=== PATIENT | female | born 1985 | race Caucasian/White ===

== ENCOUNTER 2018-01-01 03:01 | Observation (INO) | payer SELFPAY ==
[2018-01-01] MEDS ORDERED: NORMAL SALINE 1000 ML 1,000 ML IV ONE ×2 (03:16→06:10)
[2018-01-01] MEDS ORDERED: ONDANSETRON HCL INJ/PF 4 MG/2 ML SDV IV ONE (03:16)
[2018-01-01 03:59] LABS: HEMOGLOBIN 13.7 g/dL (12.0-15.5); MEAN CORPUSCULAR HEMOGLOBIN 27.4 pg (27.0-33.4); MEAN CORPUSCULAR HGB CONC 32.7 g/dL (32.0-36.0); MEAN CORPUSCULAR VOLUME 84 fl (80-97); PLATELET COUNT 398 10^3/uL (150-450); RED BLOOD COUNT 5.01 10^6/uL (3.72-5.28); RED CELL DISTRIBUTION WIDTH 14.2 % (11.5-14.0); WHITE BLOOD COUNT 24.2 10^3/uL (4.0-10.5)
[2018-01-01 04:15] LABS: ALANINE AMINOTRANSFERASE 21 U/L (9-52); ALBUMIN 4.6 g/dL (3.5-5.0); ALKALINE PHOSPHATASE 82 U/L (38-126); ANION GAP 15 (5-19); ASPARTATE AMINO TRANSFERASE 25 U/L (14-36); BILIRUBIN,DIRECT 0.3 mg/dL (0.0-0.4); BILIRUBIN,TOTAL 0.7 mg/dL (0.2-1.3); BLOOD UREA NITROGEN 10 mg/dL (7-20); CALCIUM 9.9 mg/dL (8.4-10.2); CARBON DIOXIDE 22 mmol/L (22-30); CHLORIDE 105 mmol/L (98-107); GLUCOSE 135 mg/dL (75-110); POTASSIUM 4.5 mmol/L (3.6-5.0); TOTAL PROTEIN 7.9 g/dL (6.3-8.2)
[2018-01-01 04:31] LABS: ABSOLUTE LYMPHOCYTES# (MANUAL) 1.5 10^3/uL (0.5-4.7); ABSOLUTE MONOCYTES # (MANUAL) 0.5 10^3/uL (0.1-1.4); ABSOLUTE NEUTROPHILS# (MANUAL) 22.3 10^3/uL (1.7-8.2); BASOPHILS % (MANUAL) 0 % (0-2); EOSINOPHILS % (MANUAL) 0 % (0-6); LYMPHOCYTES % (MANUAL) 6 % (13-45); MONOCYTES % (MANUAL) 2 % (3-13); SEGMENTED NEUTROPHILS % (MAN) 92 % (42-78); TOTAL CELLS COUNTED 100
[2018-01-01 04:32] LABS: PLATELET COMMENT ADEQUATE
[2018-01-01] MEDS ORDERED: HYDROMORPHONE HCL INJ/PF 2 MG/ML AMPULE IV ONE ×3 (04:32→07:10)
[2018-01-01 04:34] LABS: RBC MORPHOLOGY COMMENT NORMO-CYTIC/CHROMIC
--- NOTE | 2018-01-01 04:44 | ER Document Report ---
Doctor's Note Notes: 01/01/18 04:42 I performed a quick triage evaluation the patient. Patient is a 32-year-old female presents complaining with severe abdominal pain. Pain is mostly epigastric. She said she developed a small amount of blood earlier today. No black or tarry stools. Last bowel movement was yesterday around 1 PM there is no blood in it. She says her pain is around 10 PM. Pain is been continued since. Hurts more to lay down flat. Does not take NSAID medications. Says she has a history of which thinks is probably gastric ulcers but she has never actually had endoscopy to look for them. No recent fevers. She has had previous cholecystectomy. She does not drink alcohol. No drug abuse. No smoking. On exam she has pain mostly in the epigastric region and across her upper abdomen. Abdomen is soft and not firm. Some guarding. White blood cell count has come back at 24,000. Have ordered a CT scan with IV contrast. I have ordered pain medicine for her. 01/01/18 04:43 Dictation of this chart was performed using voice recognition software; therefore, there may be some unintended grammatical errors.
[2018-01-01 05:15] LABS: APPEARANCE,URINE SLIGHTLY-CLOUDY; BILIRUBIN,URINE NEGATIVE (NEGATIVE); COLOR,URINE YELLOW; GLUCOSE, URINE NEGATIVE (NEGATIVE); KETONES,URINE TRACE mg/dL (NEGATIVE); LEUKOCYTE ESTERASE,URINE SMALL (NEGATIVE); NITRITE,URINE NEGATIVE (NEGATIVE); PROTEIN,URINE NEGATIVE (NEGATIVE); URINE SPECIFIC GRAVITY 1.019; UROBILINOGEN,URINE NEGATIVE mg/dL (<2.0)
--- NOTE | 2018-01-01 05:41 | RADIOLOGY REPORT (SQ) ---
EXAM DESCRIPTION: XR ABDOMEN SUPINE AND ERECT WITH CHEST (ABD ACUTE SERIES) COMPLETED DATE/TME: 01/01/2018 04:32 CLINICAL HISTORY: 32 years Female, abdominal pain COMPARISON: None. NUMBER OF VIEWS/TECHNIQUE: 3 LIMITATIONS: None. FINDINGS: Intestinal gas pattern is within normal limits. Paucity of bowel gas. No suspicious calcification. Grossly intact skeletal structures. No acute cardiopulmonary findings. Right upper abdominal clips. IMPRESSION: No acute findings.
--- NOTE | 2018-01-01 06:00 | RADIOLOGY REPORT (SQ) ---
PROCEDURE: CT OF THE ABDOMEN AND PELVIS WITH INTRAVENOUS CONTRAST HISTORY: abdominal pain Indication: Same as above Comparison: None . Technique: The study was done on 01/01/2018 at 5:26 AM, local time CT of the abdomen and pelvis was done with intravenous contrast. Images were obtained from the lung base to the level of the pubic symphysis in axial plane, followed by orthogonal sagittal and coronal reconstruction. Oral contrast was not given for the study. The patient was injected with radiographic contrast intravenously, without any documented immediate adverse reactions. This exam was performed according to our departmental dose-optimization program, which includes automated exposure control, adjustment of the mA and/or KV according to the patient's size and/or use of iterative reconstruction technique. FINDINGS: Images through the lung bases do not show any focal infiltrates or pleural effusions. The appendix is enlarged, measuring 9 mm, is fluid-filled and contains few appendicoliths with periappendiceal inflammatory change suggestive of early acute appendicitis. Benign ovarian follicles are seen, not requiring any imaging follow-up. Trace amount of free fluid is seen in the dependent portion of the pelvis. An anteverted uterus is noted The liver, pancreas and the bilateral adrenal glands appear unremarkable. There is prior cholecystectomy. There is a subcentimeter benign cyst/hemangioma in the superior lateral aspect of the spleen The bilateral kidneys enhance with contrast in a normal fashion. A benign cortical cyst is seen in the medial aspect of the midpole of the right kidney The urinary bladder is unremarkable . The bilateral ureters and the bilateral periureteral soft tissues and fat planes are unremarkable. The small bowel appears unremarkable, without any evidence of small bowel obstruction or bowel wall thickening. There is no CT evidence of acute colonic diverticulitis or colitis or large bowel obstruction. The splenic and portal veins are of normal caliber, without any filling defects. There is no pathological lymphadenopathy in the retroperitoneum or in the pelvic region. There is no evidence of free air in the abdomen or the pelvic region. There is no clinically significant abdominal aortic aneurysm. There is no clinically significant inguinal or ventral hernia. The visualized lumbar spine is unremarkable . The paravertebral soft tissues are unremarkable. The remainder of the pelvic structures are unremarkable. The findings were discussed with Ms. Trista Duran RN at 4:58 AM IMPRESSION: The appendix is enlarged, measuring 9 mm, is fluid-filled and contains few appendicoliths with periappendiceal inflammatory change suggestive of early acute appendicitis.. Location of Interpretation: Teleradiology
[2018-01-01] MEDS ORDERED: PIPERACILLIN/TAZOBACTAM 3.375 GM VIAL IV ONE (06:07)
--- NOTE | 2018-01-01 06:14 | ER Document Report ---
ED General - General Chief Complaint: Abdominal Pain Stated Complaint: ABDOMINAL PAIN Time Seen by Provider: 01/01/18 04:34 Information source: Patient - HPI Patient complains to provider of: Lower abdominal pain Onset: This evening - 32-year-old female presented for evaluation of abdominal pain in the lower aspect of the abdomen with some cramping associated fevers chills as well as now anorexia. Has never had anything like this in the past, nothing makes it better or worse, it is intensified and moved from her bellybutton to lower aspect of her abdomen. She does have a history of having her gallbladder removed as well as a tubal ligation in the past. - Related Data Allergies/Adverse Reactions: acetaminophen [From Tylenol-Codeine #3] Allergy (Verified 01/01/18 03:06) codeine [From Tylenol-Codeine #3] Allergy (Verified 01/01/18 03:06) Past Medical History - General Information source: Patient - Social History Smoking Status: Never Smoker Frequency of alcohol use: Social Drug Abuse: None Family History: None Patient has suicidal ideation: No Patient has homicidal ideation: No Renal/ Medical History: Denies: Hx Peritoneal Dialysis Past Surgical History: Reports: Hx Cholecystectomy, Hx Orthopedic Surgery - Right foot, Hx Tubal Ligation Review of Systems - Review of Systems -: Yes All other systems reviewed and negative Physical Exam - Vital signs Vitals: Temp Pulse Resp BP Pulse Ox 97.9 F 93 20 118/80 100 01/01/18 03:11 01/01/18 03:11 01/01/18 03:11 01/01/18 03:11 01/01/18 03:11 - General General appearance: Appears well In distress: None - HEENT Head: Normocephalic Eyes: Normal Conjunctiva: Normal Cornea: Normal Extraocular movements intact: No - Respiratory Respiratory status: No respiratory distress Chest status: Nontender Breath sounds: Normal Chest palpation: Normal - Cardiovascular Rhythm: Regular Heart sounds: Normal auscultation Murmur: No - Abdominal Tenderness: Other - Diffuse tenderness throughout the abdomen worse in the suprapubic aspect as well as the right lower quadrant with some appreciable rebound - Back Back: Normal - Extremities General upper extremity: Normal inspection General lower extremity: Normal inspection - Neurological Neuro grossly intact: Yes Cognition: Normal Orientation: AAOx4 [place] Coma Scale Eye Opening: Spontaneous [place] Coma Scale Verbal: Oriented [place] Coma Scale Motor: Obeys Commands [place] Coma Scale Total: 15 - Psychological Associated symptoms: Normal affect Course - Re-evaluation Re-evalutation: 01/01/18 07:55 This 32-year-old female presented for evaluation of abdominal pain. Prior to my assessment this patient underwent CT imaging as well as labs, she is marked leukocytosis with anorexia her CT does demonstrate what appears to be an acute appendicitis. Contacted on-call general surgeon Dr. Hines. Dr. Hines agrees to evaluate the patient. We will initiate Zosyn for the patient as far as antibiotics. Patient is undergone evaluation through general surgery at this time plan to go to the operating room. We will continue to monitor emergency department to appropriately transported to the operating room. - Vital Signs Vital signs: Temp Pulse Resp BP Pulse Ox 98.5 F 93 20 123/75 100 01/01/18 06:50 01/01/18 03:11 01/01/18 05:00 01/01/18 07:00 01/01/18 07:01 - Laboratory Result Diagrams: 01/01/18 03:42 01/01/18 03:42 Laboratory results interpreted by me: 01/01/18 01/01/18 01/01/18 03:42 03:42 04:57 WBC 24.2 H RDW 14.2 H Seg Neuts % (Manual) 92 H Lymphocytes % (Manual) 6 L Monocytes % (Manual) 2 L Abs Neuts (Manual) 22.3 H Glucose 135 H Urine Ketones TRACE H Ur Leukocyte Esterase SMALL H Urine Ascorbic Acid 20 H Discharge - Discharge Clinical Impression: Acute appendicitis Qualifiers: Acute appendicitis type: with localized peritonitis Qualified Code(s): K35.3 - Acute appendicitis with localized peritonitis Condition: Stable Disposition: ADMITTED INPATIENT Admitting Provider: Surgicalist
[2018-01-01] MEDS ORDERED: HYDROMORPHONE HCL INJ/PF 2 MG/ML AMPULE ONE ×2 (07:09→09:23)
[2018-01-01] MEDS ORDERED: ONDANSETRON HCL INJ/PF 4 MG/2 ML SDV IV PRN ×2 (07:32→10:17)
[2018-01-01] MEDS ORDERED: DEXTROSE 5%-LACTATED RINGERS 1,000 ML IV PRN (07:32)
[2018-01-01] MEDS ORDERED: MORPHINE SULFATE 10 MG/ML INJ IV PRN (07:32)
--- NOTE | 2018-01-01 07:32 | PDOC H&P ---
History of Present Illness Patient complains of: Right lower quadrant abdominal pain History of Present Illness: MAMI BARKER is a 32 year old female with a 12 hour history of periumbilical abdominal pain that has radiated to the right lower quadrant. She reports subjective fevers and chills. Her abdominal pain is sharp and severe, rated 10 out of 10 at its worst. Pain radiates into her pelvis and across her midline to the left lower quadrant. Patient has had associated nausea and vomiting. Movement and palpation make her pain worse. Pain medication makes it better. Patient denies chest pain, shortness of breath, fatigue, malaise, dizziness, orthostasis, blurry vision, melena, hematochezia, hematemesis. Past Surgical History Past Surgical History: Reports: Cholecystectomy, Orthopedic Surgery - Right foot , Tubal Ligation Social History Information Source: Patient Smoking Status: Former Smoker Frequency of Alcohol Use: Occasional Hx Recreational Drug Use: No Hx Prescription Drug Abuse: No Family History Family History: Reviewed & Not Pertinent Parental Family History Reviewed: Yes Children Family History Reviewed: Yes Sibling(s) Family History Reviewed.: Yes Medication/Allergy Home Medications: No Home Medications 01/01/18 Allergies/Adverse Reactions: acetaminophen [From Tylenol-Codeine #3] Allergy (Verified 01/01/18 03:06) codeine [From Tylenol-Codeine #3] Allergy (Verified 01/01/18 03:06) Review of Systems Constitutional: PRESENT: anorexia, chills, fever(s). ABSENT: fatigue, weakness Eyes: ABSENT: visual disturbances Ears: ABSENT: hearing changes Nose, Mouth, and Throat: ABSENT: sore throat Cardiovascular: ABSENT: chest pain, dyspnea on exertion, edema Respiratory: ABSENT: cough, dyspnea Gastrointestinal: PRESENT: abdominal pain, nausea, vomiting. ABSENT: constipation, dysphagia, heartburn, hematemesis, hematochezia, melena Genitourinary: ABSENT: dysuria Musculoskeletal: ABSENT: back pain Integumentary: ABSENT: diaphoresis, pruritus, rash Neurological: ABSENT: abnormal gait, confusion, convulsions, dizziness, memory loss Psychiatric: ABSENT: anxiety, depression, hallucinations Endocrine: ABSENT: cold intolerance, heat intolerance Hematologic/Lymphatic: ABSENT: easy bleeding, easy bruising Physical Exam Vital Signs: Temp Pulse Resp BP Pulse Ox 98.5 F 93 20 123/75 100 01/01/18 06:50 01/01/18 03:11 01/01/18 05:00 01/01/18 07:00 01/01/18 07:01 Intake & Output 12/31/17 01/01/18 01/02/18 06:59 06:59 06:59 Intake Total 1000 1000 Balance 1000 1000 Weight 82.8 kg General appearance: PRESENT: mild distress - Abdominal Head exam: PRESENT: atraumatic, normocephalic Eye exam: PRESENT: EOMI, PERRLA. ABSENT: scleral icterus Mouth exam: PRESENT: moist, neck supple Teeth exam: ABSENT: poor dentation Neck exam: ABSENT: lymphadenopathy, meningismus, tenderness, thyromegaly, tracheal deviation Respiratory exam: PRESENT: clear to auscultation cari, unlabored. ABSENT: chest wall tenderness, tachypnea, wheezes Cardiovascular exam: PRESENT: RRR Pulses: PRESENT: normal radial pulses Vascular exam: PRESENT: normal capillary refill, pallor GI/Abdominal exam: PRESENT: guarding, rebound, tenderness - Right lower quadrant. ABSENT: distended Rectal exam: PRESENT: deferred Extremities exam: ABSENT: clubbing, tenderness Musculoskeletal exam: ABSENT: deformity Neurological exam: PRESENT: alert, awake, oriented to person, oriented to place , oriented to time, oriented to situation, CN II-XII grossly intact. ABSENT: motor sensory deficit Psychiatric exam: ABSENT: agitated, anxious, depressed Focused psych exam: ABSENT: delusional Skin exam: ABSENT: cyanosis, erythema, jaundice Results Laboratory Results: 01/01/18 03:42 01/01/18 03:42 01/01/18 01/01/18 01/01/18 03:42 03:42 03:42 WBC 24.2 H RBC 5.01 Hgb 13.7 Hct 42.0 MCV 84 MCH 27.4 MCHC 32.7 RDW 14.2 H Plt Count 398 Seg Neutrophils % Not Reportable Lymphocytes % Not Reportable Monocytes % Not Reportable Eosinophils % Not Reportable Basophils % Not Reportable Absolute Neutrophils Not Reportable Absolute Lymphocytes Not Reportable Absolute Monocytes Not Reportable Absolute Eosinophils Not Reportable Absolute Basophils Not Reportable Sodium 142.0 Potassium 4.5 Chloride 105 Carbon Dioxide 22 Anion Gap 15 BUN 10 Creatinine 0.78 Est GFR ( Amer) > 60 Est GFR (Non-Af Amer) > 60 Glucose 135 H Calcium 9.9 Total Bilirubin 0.7 AST 25 ALT 21 Alkaline Phosphatase 82 Total Protein 7.9 Albumin 4.6 Lipase 47.9 Serum HCG, Qual Urine Color Urine Appearance Urine pH Ur Specific [place] Urine Protein Urine Glucose (UA) Urine Ketones Urine Blood Urine Nitrite Ur Leukocyte Esterase Urine WBC (Auto) Urine RBC (Auto) 01/01/18 01/01/18 03:42 04:57 WBC RBC Hgb Hct MCV MCH MCHC RDW Plt Count Seg Neutrophils % Lymphocytes % Monocytes % Eosinophils % Basophils % Absolute Neutrophils Absolute Lymphocytes Absolute Monocytes Absolute Eosinophils Absolute Basophils Sodium Potassium Chloride Carbon Dioxide Anion Gap BUN Creatinine Est GFR ( Amer) Est GFR (Non-Af Amer) Glucose Calcium Total Bilirubin AST ALT Alkaline Phosphatase Total Protein Albumin Lipase Serum HCG, Qual NEGATIVE Urine Color YELLOW Urine Appearance SLIGHTLY-CLOUDY Urine pH 7.0 Ur Specific [place] 1.019 Urine Protein NEGATIVE Urine Glucose (UA) NEGATIVE Urine Ketones TRACE H Urine Blood NEGATIVE Urine Nitrite NEGATIVE Ur Leukocyte Esterase SMALL H Urine WBC (Auto) 2 Urine RBC (Auto) 2 Impressions: Acute Abdomen Series 01/01/18 04:32 IMPRESSION: No acute findings. Abdomen/Pelvis CT 01/01/18 04:37 IMPRESSION: The appendix is enlarged, measuring 9 mm, is fluid-filled and contains few appendicoliths with periappendiceal inflammatory change suggestive of early acute appendicitis.. Location of Interpretation: Teleradiology Assessment & Plan - Diagnosis (1) Acute appendicitis Qualifiers: Acute appendicitis type: with localized peritonitis Qualified Code(s): K35.3 - Acute appendicitis with localized peritonitis Is this a current diagnosis for this admission?: Yes - Plan Summary Plan Summary: This is a 32-year-old female with a 12 hour history of periumbilical pain that has moved to her right lower quadrant. The pain has become sharp and severe. The patient has a 24,000 white count and a CT scan suggesting acute appendicitis. I have recommended operative intervention for the patient. Plan for laparoscopic versus open appendectomy. Risks/benefits discussed, informed consent obtained, and all questions answered.
[2018-01-01] MEDS ORDERED: FENTANYL CITRATE INJ/PF 250 MCG/5 ML AMPULE ONE (09:22)
[2018-01-01] MEDS ORDERED: MIDAZOLAM 2 MG/2 ML INJ ONE (09:22)
[2018-01-01] MEDS ORDERED: PROPOFOL INJ 200 MG/20 ML VIAL IV ONE (09:23)
[2018-01-01] MEDS ORDERED: BUPIVACAINE HCL 0.5 % INJ/PF 30 ML SDV ONE (09:43)
[2018-01-01] MEDS ORDERED: FENTANYL CITRATE INJ/PF 100 MCG/2 ML AMPUL IV PRN ×3 (10:09)
[2018-01-01] MEDS ORDERED: PROMETHAZINE HCL INJ 25 MG/1 ML VIAL IV PRN ×2 (10:09)
[2018-01-01] MEDS ORDERED: DIPHENHYDRAMINE HCL 50 MG/ML VIAL IV PRN (10:09)
[2018-01-01] MEDS ORDERED: OXYCODONE-ACETAMINOPHEN 5-325 MG TABLET PO PRN (10:17)
[2018-01-01] MEDS ORDERED: NEOSTIGMINE METHYLSULFATE 10 MG/10 ML VIAL ONE (10:26)
[2018-01-01] MEDS ORDERED: DEXAMETHASONE SOD PHOSPHATE INJ 4 MG/1 ML VIAL ONE (10:26)
[2018-01-01] MEDS ORDERED: GLYCOPYRROLATE 1 MG/5 ML SYRINGE ONE (10:26)
[2018-01-01] MEDS ORDERED: ONDANSETRON HCL INJ/PF 4 MG/2 ML SDV ONE (10:26)
[2018-01-01] MEDS ORDERED: SUCCINYLCHOLINE CHLORIDE INJ 200 MG/10 ML VIAL ONE (10:26)
[2018-01-01] MEDS ORDERED: ROCURONIUM BROMIDE INJ 50 MG/5 ML VIAL IV ONE (10:26)
--- NOTE | 2018-01-01 10:28 | Operative Report ---
Operative Report DATE OF SURGERY: 01/01/18 PREOPERATIVE DIAGNOSIS: Acute appendicitis POSTOPERATIVE DIAGNOSIS: Same without rupture OPERATION: Laparoscopic appendectomy SURGEON: JUDD WHITE ANESTHESIA: GA TISSUE REMOVED OR ALTERED: one appendix COMPLICATIONS: none ESTIMATED BLOOD LOSS: scant INTRAOPERATIVE FINDINGS: see below PROCEDURE: Patient was taken from the holding the operating room and general anesthesia was induced; the patient voided on-call to the operating room. The left arm was tucke, right arm abducted, abdomen previously clipped of hair, then prepped with Betadine. The abdomen was draped, and instrumentation was set up for laparoscopic appendectomy 3 port. Surgical plan and surgical timeout. Markings were made on the skin for supraumbilical, suprapubic, left lower quadrant port placement. Skin was anesthetized at all 3 sites with quarter percent Marcaine. A supraumbilical vertical incision was made with a knife and Veress needle inserted into the peritoneal cavity, pneumoperitoneum was established. Veress needle was removed, 5 mm port was inserted and a 5 mm viewing scope was inserted. Under direct visualization 2 additional ports were placed one suprapubic 5 mm and 112 mm left lower quadrant. Intraoperative findings were significant for no evidence of bowel or vascular injury. There was a minimal amount of purulent fluid in the right deep hemipelvis. The right tube right ovary, uterus, left tube and left ovary were all visualized, felt to be within normal limits, and photographed. The appendix was acutely inflamed, without rupture. It was affixed to the pelvic brim. It was brought up into the free peritoneal space using blunt hook cautery dissection. We now have the appendix suspended solely by its base and the mesoappendix. We now activated the stapler, amputating the appendix and the mesoappendix and a single firing. The specimen was placed in an Endobag and brought out of the patient to the left lower quadrant port site without spillage. The specimen was eventually sent to pathology for permanent analysis We returned the peritoneal cavity checked for bleeding from the staple line and there was none. Minimal amount of local irrigation was deployed around the staple line, and in the right hemipelvis removing the previously described purulent fluid. We did not irrigate the entire peritoneal cavity because that was not indicated. There is no indication for drain. At this point felt the operation was complete. Sponge and needle counts correct. All ports removed under direct visualization, pneumoperitoneum evacuated, wounds closed with 3-0 Vicryl benzoin Steri-Strips. Patient tolerated procedure well, extubated, taken recovery in stable condition.
[2018-01-01] MEDS ORDERED: PIPERACILLIN SODIUM/TAZOBACTAM 3.375 GM in NORMAL SALINE 100 ML IV SCH (12:00)
[2018-01-01] MEDS: PIPERACILLIN SODIUM/TAZOBACTAM 3.375 GM in NORMAL SALINE 100 ML IV SCH ×2 (15:46→21:06)
[2018-01-01] MEDS: KETOROLAC TROMETHAMINE INJ/PF 30 MG/1 ML SDV IV PRN (17:23)
[2018-01-02] MEDS: KETOROLAC TROMETHAMINE INJ/PF 30 MG/1 ML SDV IV PRN ×2 (02:26→08:29)
[2018-01-02] MEDS: PIPERACILLIN SODIUM/TAZOBACTAM 3.375 GM in NORMAL SALINE 100 ML IV SCH (05:23)
[2018-01-02 06:49] VITALS: BP 91/47
--- NOTE | 2018-01-02 15:10 | DISCHARGE SUMMARY E ---
Discharge Summary NAME: MAMI BARKER : 1985 AGE: 32Y ADMITTED: 01/01/2018 DISCHARGED: 01/02/2018 DISCHARGE SUMMARY: The patient is a 32-year-old white female who presents to the emergency department complaining of acute-onset abdominal pain right lower quadrant. She was seen in the emergency department where she was found to have exquisite right lower quadrant tenderness, leukocytosis 27,000. She underwent CT scan of the abdomen and pelvis which showed evidence of acute appendicitis. The patient was admitted to the surgicalist service, kept NPO, and taken to the operating room by Dr. Smith on 01/01/2018. She was found to have acute appendicitis without rupture. She underwent laparoscopic appendectomy. Pelvic organs otherwise unremarkable. The patient was admitted overnight, kept on intravenous antibiotics, started on a diet which was tolerated well. By the following morning, she was getting about satisfactorily, voiding, had adequate pain control, and was ready for discharge home. FINAL DIAGNOSIS: Acute appendicitis, status post laparoscopic appendectomy by Dr. Smith. DISPOSITION: The patient is to be discharged home to the care of family. Follow up with [facility] in 1 to 2 weeks. Resume preoperative medications, diet, and activity. DICTATING PHYSICIAN: JUDD SMITH M.D. [id number] PHY#: [id number] ID: [id number] JOB#: [id number] ACCT: [id number] cc:Jordan ORNELAS M.D. >
== END 2018-01-02 09:01 | disposition home or self-care (01) ==
LOC: ER 03:01 → 4N 11:58
PROVIDERS: ADMIT Surgery; ATTEND Surgery
PROC: 0DTJ4ZZ Resection of Appendix, Percutaneous Endoscopic Approach (ICD-10-PCS; principal; 2018-01-01 09:30)
DX: K35.80 Unspecified acute appendicitis (principal); Z90.49 Acquired absence of other specified parts of digestive tract; Z98.51 Tubal ligation status; Z87.891 Personal history of nicotine dependence
CPT/HCPCS: 96376; 99285; 96361; 96375; 96365; 36415; 83690; 84703; 85025; 80053; 81001; 88304 ×2; 74022; 74177; 44970; G0378 ×3; J2250; J3490 ×3; J1100; J3010; J1885 ×2; J2270; J1170; J0330; J2405; J7030; J2704; J2543 ×2; 840

== ENCOUNTER → 2019-04-27 | Outpatient (CLI) | payer OTHER ==
--- NOTE | 2019-04-28 10:06 | RADIOLOGY REPORT (SQ) ---
EXAM DESCRIPTION: U/S THYROID/SFT TISS HD NECK COMPLETED DATE/TIME: 04/27/2019 4:54 pm REASON FOR STUDY: E04.1 NONTOXIC SINGLE THYROID NODULE E04.1 NONTOXIC SINGLE THYROID NODULE COMPARISON: CT of the chest from 04/17/2019. TECHNIQUE: Dynamic and static damon-scale images acquired of the thyroid gland. Selected additional c olor/power Doppler images recorded. All images stored to PACS. LIMITATIONS: None. FINDINGS: RIGHT LOBE: The right lobe of the thyroid gland measures 5.7 x 2 x 1.9 cm. The echotextur e of the right lobe is heterogeneous with a single hypoechoic 5 x 4 x 2 mm nodule that has well-defin ed margins and no internal echogenic foci. LEFT LOBE: The left lobe of the thyroid gland measures 6.1 x 1.9 x 1.9 cm in its echotexture is heter ogeneous. There is a complex cystic and solid nodule in the inferior portion of the lobe that measur es 2.4 x 2.2 x 1.9 cm ; the nodule is wider than tall, contains several echogenic foci, has ill-defin ed margins, and the solid portion of the nodule (which is vascular) is [id number]. Adjacent to the nodule there is a hypoechoic nodule with well-defined margins and posterior acoustic enhancem ent that measures 5 x 6 x 5 mm. ISTHMUS: The isthmus of the thyroid gland measures 2 mm in AP diameter. The echotexture of the isthm us is homogeneous. OTHER: No other finding. IMPRESSION: TR 3/4 nodule in the left lobe of the thyroid gland as detailed above. FNA of the nodul e is recommended. TECHNICAL DOCUMENTATION: JOB ID: [id number]- All Rights Reserved Reading location - IP/workstation name: [email or web address]
== END ==
LOC: RAD 16:04
PROVIDERS: ATTEND Physician Assistant
DX: E04.1 Nontoxic single thyroid nodule (principal)
CPT/HCPCS: 76536